=== PATIENT | male | born 1965 | race Caucasian/White ===

== ENCOUNTER 2016-09-08 23:21 | Emergency (ER) | payer BC ==
[2016-09-09] MEDS ORDERED: KETOROLAC 60 MG/2 ML VIAL IM ONE (02:31)
[2016-09-09] MEDS ORDERED: ONDANSETRON ODT 4 MG TAB ONE (02:32)
== END 2016-09-09 03:24 | disposition home or self-care (01) ==
LOC: ER 23:21
CPT/HCPCS: 71020; 96372

== ENCOUNTER 2016-09-20 07:34 | Emergency (ER) | payer BC ==
[2016-09-20] MEDS ORDERED: ONDANSETRON 4 MG VIAL ONE (08:16)
[2016-09-20] MEDS ORDERED: DILAUDID 1 MG/ML AMP ONE (08:16)
[2016-09-20] MEDS ORDERED: SODIUM CHLORIDE 0.9% 1,000 ML ONE (08:16)
[2016-09-20] MEDS ORDERED: KETOROLAC 30 MG/ML VIAL ONE (10:19)
[2016-09-20] MEDS ORDERED: MORPHINE 4 MG/ML SYR ONE (10:19)
== END 2016-09-20 10:56 | disposition home or self-care (01) ==
LOC: ER 07:34
DX: R07.89 Other chest pain (principal); M62.830 Muscle spasm of back; M62.838 Other muscle spasm; Z87.891 Personal history of nicotine dependence
CPT/HCPCS: 36415; 72072; 80053; 81003; 82553; 82947; 84484; 85025; 93005; 96361; 96374; 96375